=== PATIENT | female | born 1980 | race American Indian/Alaskan Native ===

== ENCOUNTER 2016-07-08 08:57 | Emergency (ER) | payer SELFPAY ==
[2016-07-08 11:11] LABS: Bilirubin,Urine NEG (Negative); Blood,Urine NEG (Negative); Ketones,Urine NEG (Negative); Leukocyte Esterase,Urine NEG (Negative); Mucus,Urine FEW /HPF; Nitrite,Urine NEG (Negative); Protein,Urine <15 mg/dL mg/dL (Negative); WBC,Urine < 1.0 /HPF (0.0-6.0)
[2016-07-08 11:32] LABS: Basophils % (Auto) 0.6 % (0.0-1.8); Eosinophils % (Auto) 2.1 % (0.0-4.3); Hematocrit 41.1 % (30.3-42.9); Hemoglobin 13.6 gm/dl (10.1-14.3); Mean Corpuscular HGB Conc 33 % (30-34); Mean Corpuscular Hemoglobin 29 pg (28-32); Mean Corpuscular Volume 86 fl (79-97); Platelet Count 253 K/mm3 (140-440); Red Blood Count 4.78 M/mm3 (3.65-5.03); Red Cell Distribution Width 15.4 % (13.2-15.2); White Blood Count 7.3 K/mm3 (4.5-11.0)
[2016-07-08 11:55] LABS: Alanine Aminotransferase 15 units/L (7-56); Albumin 4.1 g/dL (3.9-5); Albumin/Globulin Ratio 1.1 %; Alkaline Phosphatase 58 units/L (35-129); Anion Gap 16 mmol/L; Bilirubin,Total 0.5 mg/dL (0.1-1.2); Blood Urea Nitrogen 6 mg/dL (7-17); Carbon Dioxide 26 mmol/L (22-30); Chloride 97.6 mmol/L (98-107); Glucose 79 mg/dL (65-100); Lipase 35 units/L (13-60); Potassium 3.7 mmol/L (3.6-5.0); Sodium 136 mmol/L (137-145); Total Protein 7.9 g/dL (6.3-8.2)
[2016-07-08 20:19] VITALS: BP 100/58
--- NOTE | 2016-07-08 21:04 | Emergency Department Report ---
ED Abdominal Pain HPI - General Chief Complaint: Abdominal Pain Stated Complaint: STOMACH PAIN/SOB Time Seen by Provider: 07/08/16 19:54 Source: patient Mode of arrival: Ambulatory Limitations: No Limitations - History of Present Illness Initial Comments: 36 yo female with past medical history of asthma, vaginal delivery 5, and tubal ligation 2006 presents to the hospital complaining of symptoms of . The past 2 weeks patient has had bilateral breast tenderness, nausea with vomiting worse in the morning, mild left flank pain and left-sided rib pain. Patient complains of shortness of breath at times but denies pleuritic chest pain, calf tenderness, leg edema, recent travel, history of PE/ DVT. No dyspnea at this time. Patient has 4/5 left-sided flank pain and lower back pain worse with movement and palpation. Patient took multiple negative home tests at home prior to arrival. Positive fever, dysuria, or hematuria, and menstral cycle is 3 days late. Severity scale (0 -10): 5 - Related Data Previous Rx's Medication Instructions Recorded Last Taken Type HYDROcodone/APAP 5-325 [[place] 1 each PO Q4HR PRN #14 tablet 08/31/15 Unknown Rx 5/325] Sulfamethoxazole/Trimethoprim 2 tab PO BID #28 tab 03/15/16 Unknown Rx [Bactrim 400-80 mg] Ondansetron [Zofran Odt] 4 mg PO Q8HR PRN #20 tab.rapdis 07/08/16 Unknown Rx Allergies Allergy/AdvReac Type Severity Reaction Status Date / Time iodine Allergy Unknown Verified 08/31/15 08:21 ED Review of Systems ROS: Stated complaint: STOMACH PAIN/SOB Other details as noted in HPI Comment: All other systems reviewed and negative Other: Constitutional: No fevers chills Eyes: No eye pain visual changes ENT: No ear pain or throat pain Neck: Denies pain Respiratory: Denies cough wheezing Cardiovascular: Denies palpitations, syncope GI: as per hpi : Denies dysuria Musculoskeletal: as per hpi Skin: Denies rash, lesions, erythema Neurologic: Denies headache, numbness, weakness Psychiatric: Denies suicidal ideation, hallucinations ED Past Medical Hx - Past Medical History Previous Medical History?: Yes Hx Asthma: Yes Additional medical history: Vaginal delivery x 5 - Surgical History Additional Surgical History: Left knee surgery, Tubal ligation 2006 - Social History Smoking Status: Never Smoker Substance Use Type: None - Medications Home Medications: Home Medications Medication Instructions Recorded Confirmed Last Taken Type HYDROcodone/APAP 5-325 [[place] 1 each PO Q4HR PRN #14 tablet 08/31/15 Unknown Rx 5/325] Sulfamethoxazole/Trimethoprim 2 tab PO BID #28 tab 03/15/16 Unknown Rx [Bactrim 400-80 mg] Ondansetron [Zofran Odt] 4 mg PO Q8HR PRN #20 tab.rapdis 07/08/16 Unknown Rx ED Physical Exam - General Limitations: No Limitations - Other Other exam information: General: No limitations, patient is alert in no acute distress Head exam: Atraumatic, normocephalic Eyes exam: Normal appearance, pupils equal reactive to light, extraocular movements intact ENT: Moist mucous membrane, normal oropharynx Neck exam: Normal inspection, full range of motion, no meningismus nontender Respiratory exam: Clear to auscultation bilateral, no wheezes, rales, crackles Cardiovascular: Normal rate and rhythm, normal heart sounds, right lateral chest wall/rib tenderness Abdomen: Soft, nondistended, and nontender, with normal bowel sounds, no rebound, or guarding Extremity: Full range of motion normal inspection no deformity, no calf tenderness, or edema Back: Normal Inspection, full range of motion, no tenderness Neurologic: Alert, oriented x3, cranial nerves intact, no motor or sensory deficit Psychiatric: normal affect, normal mood Skin: Warm, dry, intact ED Course Vital Signs 07/08/16 07/08/16 10:07 20:18 Temperature 98.0 F 98.2 F Pulse Rate 73 66 Respiratory 18 13 Rate Blood Pressure 117/64 Blood Pressure 100/58 [Left] O2 Sat by Pulse 100 100 Oximetry - Reevaluation(s) Reevaluation #1: 07/08/16 21:13 pt declined offer for meds ED Medical Decision Making - Lab Data Result diagrams: 07/08/16 11:21 07/08/16 11:21 Lab Results 07/08/16 07/08/16 07/08/16 Range/Units 10:50 11:21 11:21 WBC 7.3 (4.5-11.0) K/mm3 RBC 4.78 (3.65-5.03) M/mm3 Hgb 13.6 (10.1-14.3) gm/dl Hct 41.1 (30.3-42.9) % MCV 86 (79-97) fl MCH 29 (28-32) pg MCHC 33 (30-34) % RDW 15.4 H (13.2-15.2) % Plt Count 253 (140-440) K/mm3 Lymph % (Auto) 27.1 (13.4-35.0) % Russell % (Auto) 6.5 (0.0-7.3) % Eos % (Auto) 2.1 (0.0-4.3) % Baso % (Auto) 0.6 (0.0-1.8) % Lymph # 2.0 (1.2-5.4) K/mm3 Russell # 0.5 (0.0-0.8) K/mm3 Eos # 0.2 (0.0-0.4) K/mm3 Baso # 0.0 (0.0-0.1) K/mm3 Seg Neutrophils % 63.7 (40.0-70.0) % Seg Neutrophils # 4.6 (1.8-7.7) K/mm3 Sodium 136 L (137-145) mmol/L Potassium 3.7 (3.6-5.0) mmol/L Chloride 97.6 L (98-107) mmol/L Carbon Dioxide 26 (22-30) mmol/L Anion Gap 16 mmol/L BUN 6 L (7-17) mg/dL Creatinine 0.6 L (0.7-1.2) mg/dL Estimated GFR > 60 ml/min BUN/Creatinine Ratio 10.00 % Glucose 79 (65-100) mg/dL Calcium 9.0 (8.4-10.2) mg/dL Total Bilirubin 0.5 (0.1-1.2) mg/dL AST 19 (5-40) units/L ALT 15 (7-56) units/L Alkaline Phosphatase 58 (35-129) units/L Total Protein 7.9 (6.3-8.2) g/dL Albumin 4.1 (3.9-5) g/dL Albumin/Globulin Ratio 1.1 % Lipase 35 (13-60) units/L HCG, Qual (Negative) Urine Color Yellow (Yellow) Urine Turbidity Clear (Clear) Urine pH 5.0 (5.0-7.0) Ur Specific [place] 1.014 (1.003-1.030) Urine Protein <15 mg/dl (Negative) mg/dL Urine Glucose (UA) Neg (Negative) mg/dL Urine Ketones Neg (Negative) mg/dL Urine Blood Neg (Negative) Urine Nitrite Neg (Negative) Urine Bilirubin Neg (Negative) Urine Urobilinogen 2.0 (<2.0) mg/dL Ur Leukocyte Esterase Neg (Negative) Urine WBC (Auto) < 1.0 (0.0-6.0) /HPF Urine RBC (Auto) 5.0 (0.0-6.0) /HPF U Epithel Cells (Auto) 1.0 (0-13.0) /HPF Urine Mucus Few /HPF 07/08/16 Range/Units 11:21 WBC (4.5-11.0) K/mm3 RBC (3.65-5.03) M/mm3 Hgb (10.1-14.3) gm/dl Hct (30.3-42.9) % MCV (79-97) fl MCH (28-32) pg MCHC (30-34) % RDW (13.2-15.2) % Plt Count (140-440) K/mm3 Lymph % (Auto) (13.4-35.0) % Russell % (Auto) (0.0-7.3) % Eos % (Auto) (0.0-4.3) % Baso % (Auto) (0.0-1.8) % Lymph # (1.2-5.4) K/mm3 Russell # (0.0-0.8) K/mm3 Eos # (0.0-0.4) K/mm3 Baso # (0.0-0.1) K/mm3 Seg Neutrophils % (40.0-70.0) % Seg Neutrophils # (1.8-7.7) K/mm3 Sodium (137-145) mmol/L Potassium (3.6-5.0) mmol/L Chloride (98-107) mmol/L Carbon Dioxide (22-30) mmol/L Anion Gap mmol/L BUN (7-17) mg/dL Creatinine (0.7-1.2) mg/dL Estimated GFR ml/min BUN/Creatinine Ratio % Glucose (65-100) mg/dL Calcium (8.4-10.2) mg/dL Total Bilirubin (0.1-1.2) mg/dL AST (5-40) units/L ALT (7-56) units/L Alkaline Phosphatase (35-129) units/L Total Protein (6.3-8.2) g/dL Albumin (3.9-5) g/dL Albumin/Globulin Ratio % Lipase (13-60) units/L HCG, Qual Negative (Negative) Urine Color (Yellow) Urine Turbidity (Clear) Urine pH (5.0-7.0) Ur Specific [place] (1.003-1.030) Urine Protein (Negative) mg/dL Urine Glucose (UA) (Negative) mg/dL Urine Ketones (Negative) mg/dL Urine Blood (Negative) Urine Nitrite (Negative) Urine Bilirubin (Negative) Urine Urobilinogen (<2.0) mg/dL Ur Leukocyte Esterase (Negative) Urine WBC (Auto) (0.0-6.0) /HPF Urine RBC (Auto) (0.0-6.0) /HPF U Epithel Cells (Auto) (0-13.0) /HPF Urine Mucus /HPF - Medical Decision Making Pt stable with minimal sx at this time. Declined pain meds in ed. No sob. Pt's main concern was to verify . pt d/c home on meds for nausea - Differential Diagnosis , uti, renal colic gastritis, gerd, Critical Care Time: No Critical care attestation.: If time is entered above; I have spent that time in minutes in the direct care of this critically ill patient, excluding procedure time. ED Disposition Clinical Impression: Nausea and vomiting, Abdominal pain Disposition: DISCHARGED TO HOME OR SELFCARE Is pt being admited?: No Does the pt Need Aspirin: No Condition: Stable Instructions: Acute Nausea and Vomiting (ED), Abdominal Pain (ED) Additional Instructions: Take the nausea medication as needed. Follow-up with the [facility] doctor provided, primary care doctor, and/or primary care clinic. You may take Tylenol or Motrin as needed for pain. Return symptoms worse Prescriptions: Ondansetron [Zofran Odt] 4 mg PO Q8HR PRN #20 tab.rapdis PRN Reason: Nausea And Vomiting Referrals: NAS AWAD MD [Staff Physician] - 3-5 Days ([facility]) PATRICIO DRAPER MD [Staff Physician] - 3-5 Days (Primary care doctor) [facility] [Provider Group] - 3-5 Days (Clinic) Time of Disposition: 21:01
== END 2016-07-08 21:18 | disposition home or self-care (01) ==
LOC: ED 08:57
DX: R10.30 Lower abdominal pain, unspecified (principal); R11.2 Nausea with vomiting, unspecified; J45.909 Unspecified asthma, uncomplicated
CPT/HCPCS: 36415; 80053; 81001; 83690; 84703; 85025; 99283

== ENCOUNTER 2017-12-18 23:42 | Emergency (ER) | payer SELFPAY ==
[2017-12-19 00:09] VITALS: BP 106/72
--- NOTE | 2017-12-19 01:03 | XRay Report ---
FINAL REPORT EXAM: XR SPINE LUMBOSACRAL 2-3V HISTORY: lower back pain COMPARISON: None available. FINDINGS: Three views of the lumbar spine obtained. Lumbar vertebral body heights are preserved. Mild levoconvex curvature. Disc heights are preserved. Pedicles are intact. No spondylolisthesis. IMPRESSION: Lumbar vertebral body heights and disc heights are preserved. Mild scoliotic curvature.
--- NOTE | 2017-12-19 01:05 | XRay Report ---
FINAL REPORT EXAM: XR FOOT 3+V LT HISTORY: left foot pain with great toe swelling COMPARISON: None available. FINDINGS: Three views of left foot obtained. Moderate hallux valgus deformity with bunion formation. Mild narrowing of the 1st MTP joint. Bony structures are intact. No acute fracture dislocation. IMPRESSION: Moderate hallux valgus deformity with bunion formation. Mild narrowing of the 1st MTP joint. Bony structures are intact. No acute fracture dislocation.
--- NOTE | 2017-12-19 09:33 | Emergency Department Report ---
ED Fall HPI - General Chief Complaint: Fall Stated Complaint: BACK/LEG/FACE PAIN (FALL) Time Seen by Provider: 12/19/17 07:27 Source: patient Mode of arrival: Ambulatory - Related Data Previous Rx's Medication Instructions Recorded Last Taken Type HYDROcodone/APAP 5-325 [[place] 1 each PO Q4HR PRN #14 tablet 08/31/15 Unknown Rx 5/325] Sulfamethoxazole/Trimethoprim 2 tab PO BID #28 tab 03/15/16 Unknown Rx [Bactrim 400-80 mg] Ondansetron [Zofran Odt] 4 mg PO Q8HR PRN #20 tab.rapdis 07/08/16 Unknown Rx Allergies Allergy/AdvReac Type Severity Reaction Status Date / Time iodine Allergy Unknown Verified 08/31/15 08:21 ED Review of Systems ROS: Stated complaint: BACK/LEG/FACE PAIN (FALL) Other details as noted in HPI ED Past Medical Hx - Past Medical History Hx Asthma: Yes Additional medical history: Vaginal delivery x 5 - Surgical History Additional Surgical History: Left knee surgery, Tubal ligation 2006 - Social History Smoking Status: Never Smoker Substance Use Type: None - Medications Home Medications: Home Medications Medication Instructions Recorded Confirmed Last Taken Type HYDROcodone/APAP 5-325 [[place] 1 each PO Q4HR PRN #14 tablet 08/31/15 Unknown Rx 5/325] Sulfamethoxazole/Trimethoprim 2 tab PO BID #28 tab 03/15/16 Unknown Rx [Bactrim 400-80 mg] Ondansetron [Zofran Odt] 4 mg PO Q8HR PRN #20 tab.rapdis 07/08/16 Unknown Rx ED Physical Exam - General Limitations: No Limitations ED Course Vital Signs 12/19/17 00:08 Temperature 98.8 F Pulse Rate 62 Respiratory 16 Rate Blood Pressure 106/72 [Left] O2 Sat by Pulse 100 Oximetry Critical care attestation.: If time is entered above; I have spent that time in minutes in the direct care of this critically ill patient, excluding procedure time. ED Disposition Condition: Stable Referrals: PRIMARY CARE, [Primary Care Provider] - 3-5 Days
== END 2017-12-19 00:10 | disposition left against medical advice (07) ==
LOC: ED 23:42
DX: M54.5 Low back pain (principal); R51 Headache; Z53.21 Procedure and treatment not carried out due to patient leaving prior to being seen by health care provider
CPT/HCPCS: 72100

== ENCOUNTER 2019-02-27 19:06 | Emergency (ER) | payer SELFPAY ==
--- NOTE | 2019-02-27 20:24 | Event Note ---
ED Screening Note Date of service: 02/27/19 Time: 20:21 ED Screening Note: This is a 38 y.o. F. that presents to the ER with chest pain with deep breaths and SOB for 2 days. - cough, chills, fever, palpitations, radiating pain This initial assessment/diagnostic orders/clinical plan/treatment(s) is/are subject to change based on patients health status, clinical progression and re- assessment by fellow clinical providers in the ED. Further treatment and workup at subsequent clinical providers discretion. Patient/guardian urged not to elope from the ED as their condition may be serious if not clinically assessed and managed. Initial orders include: CXR
--- NOTE | 2019-02-27 21:18 | XRay Report ---
CHEST 2 VIEWS INDICATION: CP and SOB. COMPARISON: None FINDINGS: Support devices: None. Heart: Within normal limits. Lungs/pleura: No acute air space or interstitial disease. No pneumothorax. Additional findings: None. IMPRESSION: 1. No acute findings. Signer Name: Matt Arreola MD Signed: 02/27/2019 9:14 PM Workstation Name: [id number]
--- NOTE | 2019-02-27 22:10 | Emergency Department Report ---
ED General Adult HPI - General Chief complaint: Chest Pain Stated complaint: BODY ACHE/CHEST HURT Time Seen by Provider: 02/27/19 20:20 Source: patient Mode of arrival: Ambulatory Limitations: No Limitations - History of Present Illness Initial comments: Ms. Berry is a 38 y.o. F. that presents to the ER with chest pain with deep breaths and SOB for 2 days. pt has hx of bronchitis. pt denies dyspnea, no n/v, no dizziness, no lightheadedness no back pain, wheezing no stridor. Pain is 3/10 sorness , sharp exacerbated by deep breathing an cough. There is no relieving factor. Onset/Timin -: days(s) Location: chest Radiation: non-radiation Severity scale (0 -10): 3 Quality: sharp Consistency: intermittent Improves with: rest Worsens with: movement, other (deep breathing ) Associated Symptoms: chest pain, cough. denies: denies other symptoms, fever/chills, headaches, nausea/vomiting, shortness of breath, syncope, weakness Treatments Prior to Arrival: none - Related Data Previous Rx's Medication Instructions Recorded Last Taken Type Cetirizine HCl [ZyrTEC] 10 mg PO DAILY #30 capsule 07/16/18 Unknown Rx predniSONE [Deltasone] 20 mg PO DAILY #5 tablet 07/16/18 Unknown Rx ALBUTEROL Inhaler (OR & NICU) 2 puff IH QID PRN #1 inh 02/27/19 Unknown Rx [ProAir HFA Inhaler] Ibuprofen [Motrin 800 MG tab] 800 mg PO Q8HR PRN #30 tablet 02/27/19 Unknown Rx Allergies Allergy/AdvReac Type Severity Reaction Status Date / Time iodine Allergy Anaphylaxis Verified 03/19/18 17:41 shellfish derived Allergy Anaphylaxis Verified 03/19/18 17:41 ED Review of Systems ROS: Stated complaint: BODY ACHE/CHEST HURT Other details as noted in HPI Constitutional: denies: chills, fever Eyes: denies: eye pain, eye discharge, vision change ENT: congestion. denies: ear pain, throat pain Respiratory: cough, shortness of breath. denies: wheezing Cardiovascular: chest pain (chest wall pain wigh cough and deep breathing.). denies: palpitations, orthopnea, paroxysmal nocturnal dyspnea Endocrine: no symptoms reported Gastrointestinal: denies: abdominal pain, nausea, vomiting, diarrhea Genitourinary: denies: urgency, dysuria, discharge Musculoskeletal: denies: back pain, joint swelling, arthralgia Skin: denies: rash, lesions Neurological: denies: headache, weakness, paresthesias Psychiatric: denies: anxiety, depression Hematological/Lymphatic: denies: easy bleeding, easy bruising ED Past Medical Hx - Past Medical History Previous Medical History?: Yes Hx Asthma: Yes Additional medical history: Vaginal delivery x 5 - Surgical History Past Surgical History?: Yes Additional Surgical History: Left ACL repair. Tubal ligation 2006. hernia repair - Social History Smoking Status: Never Smoker Substance Use Type: None - Medications Home Medications: Home Medications Medication Instructions Recorded Confirmed Last Taken Type Cetirizine HCl [ZyrTEC] 10 mg PO DAILY #30 capsule 07/16/18 Unknown Rx predniSONE [Deltasone] 20 mg PO DAILY #5 tablet 07/16/18 Unknown Rx ALBUTEROL Inhaler (OR & NICU) 2 puff IH QID PRN #1 inh 02/27/19 Unknown Rx [ProAir HFA Inhaler] Ibuprofen [Motrin 800 MG tab] 800 mg PO Q8HR PRN #30 tablet 02/27/19 Unknown Rx ED Physical Exam - General Limitations: No Limitations General appearance: alert, in no apparent distress - Head Head exam: Present: atraumatic, normocephalic - Eye Eye exam: Present: normal appearance, PERRL, EOMI Pupils: Present: normal accommodation - ENT ENT exam: Present: normal orophraynx, mucous membranes moist, TM's normal bilaterally, normal external ear exam - Neck Neck exam: Present: normal inspection, full ROM. Absent: tenderness, lymphadenopathy - Respiratory Respiratory exam: Present: normal lung sounds bilaterally, chest wall tenderness (right lateral chest wall tenderness to deep palpation). Absent: respiratory distress, wheezes, stridor, accessory muscle use, decreased breath sounds, prolonged expiratory - Cardiovascular Cardiovascular Exam: Present: regular rate, normal heart sounds - GI/Abdominal GI/Abdominal exam: Present: soft, normal bowel sounds. Absent: distended, tenderness, bruit, hernia - Rectal Rectal exam: Present: deferred - External exam: Present: normal external exam - Extremities Exam Extremities exam: Present: normal inspection, full ROM, normal capillary refill. Absent: tenderness, pedal edema, joint swelling - Back Exam Back exam: Present: normal inspection, full ROM. Absent: tenderness, CVA tenderness (R), CVA tenderness (L), rash noted - Neurological Exam Neurological exam: Present: alert, oriented X3, CN II-XII intact, normal gait - Psychiatric Psychiatric exam: Present: normal affect, normal mood - Skin Skin exam: Present: warm, dry, intact, normal color. Absent: rash ED Course Vital Signs 02/27/19 20:19 Temperature 98.4 F Pulse Rate 74 Respiratory 18 Rate Blood Pressure 114/78 O2 Sat by Pulse 100 Oximetry ED Medical Decision Making - EKG Data EKG shows normal: intervals, QRS complexes, ST-T waves Rate: normal - EKG Data When compared to previous EKG there are: previous EKG unavailable Interpretation: normal EKG (ekg interp by ed attending NSR, no ST Elevated SC) - Radiology Data Radiology results: report reviewed, image reviewed Ordering Physician: FLORENCE ORTEGA Date of Service: 02/27/19 Procedure(s): XR chest routine 2V Accession Number(s): [id number] cc: FLORENCE ORTEGA Fluoro Time In Minutes: CHEST 2 VIEWS INDICATION: CP and SOB. COMPARISON: None FINDINGS: Support devices: None. Heart: Within normal limits. Lungs/pleura: No acute air space or interstitial disease. No pneumothorax. Additional findings: None. IMPRESSION: 1. No acute findings. Signer Name: Matt Arreola MD Signed: 02/27/2019 9:14 PM Workstation Name: [id number] Transcribed By: JW Dictated By: Matt Arreola MD Electronically Authenticated By: Matt Arreola MD Signed Date/Time: 02/27/192113 DD/ 13 TD/TT: - Medical Decision Making this is chest wall pain, low heart score concern, no PERC concern, pain is reproducible to deep palpation, there is no sob, no wheezing, no stridor, plan : refill albuterol inhaler, ibuprofen prn, follow up with pcp in 2-3 days , return to ed if symptoms worsen. Critical care attestation.: If time is entered above; I have spent that time in minutes in the direct care of this critically ill patient, excluding procedure time. ED Disposition Clinical Impression: Chest wall pain Disposition: DC-01 TO HOME OR SELFCARE Is pt being admited?: No Does the pt Need Aspirin: No Condition: Stable Instructions: Chest Pain (ED) Prescriptions: Ibuprofen [Motrin 800 MG tab] 800 mg PO Q8HR PRN #30 tablet PRN Reason: pain ALBUTEROL Inhaler (OR & NICU) [ProAir HFA Inhaler] 2 puff IH QID PRN #1 inh PRN Reason: Shortness Of Breath Referrals: [facility] [Outside] - 3-5 Days Forms: Work/School Release Form(ED) Time of Disposition: 22:20
[2019-02-27 22:46] VITALS: BP 100/69
== END 2019-02-27 22:35 | disposition home or self-care (01) ==
LOC: ED 19:06
DX: R07.89 Other chest pain (principal); J45.909 Unspecified asthma, uncomplicated; Z98.51 Tubal ligation status; Z98.890 Other specified postprocedural states; Z79.1 Long term (current) use of non-steroidal anti-inflammatories (NSAID); Z79.899 Other long term (current) drug therapy; Z91.013 Allergy to seafood; Z91.041 Radiographic dye allergy status
CPT/HCPCS: 71046; 93005; 93010

== ENCOUNTER 2019-04-28 12:47 | Emergency (ER) | payer SELFPAY ==
[2019-04-28 13:12] VITALS: BP 110/57
--- NOTE | 2019-04-28 13:54 | XRay Report ---
CHEST 2 VIEWS INDICATION: MAIN: persistant cough and fever FOR 2 DAYS. COMPARISON: 02/27/2019. FINDINGS: Support devices: None. Heart: Within normal limits. Lungs/Pleura: No acute air space or interstitial disease. No significant pleural effusion. IMPRESSION: No acute findings. Signer Name: Fabiano Georges MD Signed: 04/28/2019 1:50 PM Workstation Name: [id number]
== END 2019-04-28 13:00 | disposition left against medical advice (07) ==
LOC: ED 12:47
DX: J06.9 Acute upper respiratory infection, unspecified (principal); Z53.21 Procedure and treatment not carried out due to patient leaving prior to being seen by health care provider
CPT/HCPCS: 71046

== ENCOUNTER 2019-06-03 00:04 | Emergency (ER) | payer BC ==
[2019-06-03 05:04] VITALS: BP 116/43
--- NOTE | 2019-06-03 07:33 | Emergency Department Report ---
ED Upper Extremity Inj HPI - General Chief Complaint: Extremity Injury, Upper Stated Complaint: NUMBNESS TO RIGHT ARM,BODY SORE Time Seen by Provider: 06/03/19 07:27 Source: patient Mode of arrival: Ambulatory Limitations: No Limitations - History of Present Illness Initial Comments: c/o intermittent numbness/sleeping sensation to R arm x 1 month reports pain to shoulder for few months attributed to repetitive motion and lifting done at work no facial droop, leg weakness or other complaints no trauma no cp/sob MD Complaint: Injury to:: right -: Gradual, month(s) (1) Other Extremity Injury: Shoulder: Right Other Injuries: none Place: work Severity scale (0 -10): 5 Improves With: none Worsens With: none Context: other Associated Symptoms: denies: neck pain - Related Data Previous Rx's Medication Instructions Recorded Last Taken Type Cetirizine HCl [ZyrTEC] 10 mg PO DAILY #30 capsule 07/16/18 Unknown Rx predniSONE [Deltasone] 20 mg PO DAILY #5 tablet 07/16/18 Unknown Rx Albuterol INH(or & Nicu Only) 2 puff IH QID PRN #1 inh 02/27/19 Unknown Rx [ProAir HFA Inhaler] Ibuprofen [Motrin 800 MG tab] 800 mg PO Q8HR PRN #30 tablet 02/27/19 Unknown Rx Naproxen [Naprosyn] 500 mg PO BID #20 tablet 06/03/19 Unknown Rx methylPREDNISolone [Medrol 4MG 4 mg PO DAILY #1 tab.ds.pk 06/03/19 Unknown Rx DOSEPAK (21 tabs)] Allergies Allergy/AdvReac Type Severity Reaction Status Date / Time iodine Allergy Anaphylaxis Verified 03/19/18 17:41 shellfish derived Allergy Anaphylaxis Verified 03/19/18 17:41 ED Review of Systems ROS: Stated complaint: NUMBNESS TO RIGHT ARM,BODY SORE Other details as noted in HPI Comment: All other systems reviewed and negative Musculoskeletal: as per HPI ED Past Medical Hx - Past Medical History Previous Medical History?: Yes Hx Asthma: Yes Additional medical history: Vaginal delivery x 5 - Surgical History Past Surgical History?: Yes Additional Surgical History: Left ACL repair. Tubal ligation 2006. hernia repair - Social History Smoking Status: Never Smoker Substance Use Type: None - Medications Home Medications: Home Medications Medication Instructions Recorded Confirmed Last Taken Type Cetirizine HCl [ZyrTEC] 10 mg PO DAILY #30 capsule 07/16/18 Unknown Rx predniSONE [Deltasone] 20 mg PO DAILY #5 tablet 07/16/18 Unknown Rx Albuterol INH(or & Nicu Only) 2 puff IH QID PRN #1 inh 02/27/19 Unknown Rx [ProAir HFA Inhaler] Ibuprofen [Motrin 800 MG tab] 800 mg PO Q8HR PRN #30 tablet 02/27/19 Unknown Rx Naproxen [Naprosyn] 500 mg PO BID #20 tablet 06/03/19 Unknown Rx methylPREDNISolone [Medrol 4MG 4 mg PO DAILY #1 tab.ds.pk 06/03/19 Unknown Rx DOSEPAK (21 tabs)] ED Physical Exam - General Limitations: No Limitations General appearance: alert, in no apparent distress - Head Head exam: Present: atraumatic, normocephalic - Eye Eye exam: Present: normal appearance - ENT ENT exam: Present: mucous membranes moist - Neck Neck exam: Present: normal inspection - Respiratory Respiratory exam: Present: normal lung sounds bilaterally. Absent: respiratory distress - Cardiovascular Cardiovascular Exam: Present: regular rate, normal rhythm. Absent: systolic murmur, diastolic murmur, rubs, gallop - GI/Abdominal GI/Abdominal exam: Present: soft, normal bowel sounds - Extremities Exam Extremities exam: Present: normal inspection, full ROM, normal capillary refill. Absent: tenderness - Back Exam Back exam: Present: normal inspection - Neurological Exam Neurological exam: Present: alert, oriented X3, CN II-XII intact, normal gait, reflexes normal. Absent: motor sensory deficit - Psychiatric Psychiatric exam: Present: normal affect, normal mood - Skin Skin exam: Present: warm, dry, intact, normal color. Absent: rash ED Course Vital Signs 06/03/19 06/03/19 00:12 05:02 Temperature 98.2 F 97.7 F Pulse Rate 71 61 Respiratory 18 18 Rate Blood Pressure 111/71 116/43 O2 Sat by Pulse 99 100 Oximetry ED Medical Decision Making - Medical Decision Making intermittent numbness to R arm which is used heavily at work normal exam here including strength sensation and reflexes c/w radiculopathy no concern cva advise ortho fu - Differential Diagnosis radiculopathy, strain, spasms Critical care attestation.: If time is entered above; I have spent that time in minutes in the direct care of this critically ill patient, excluding procedure time. ED Disposition Clinical Impression: Cervical radiculopathy Disposition: TO HOME OR SELFCARE Is pt being admited?: No Condition: Good Instructions: Cervical Radiculopathy (ED) Prescriptions: methylPREDNISolone [Medrol 4MG DOSEPAK (21 tabs)] 4 mg PO DAILY #1 tab.ds.pk Naproxen [Naprosyn] 500 mg PO BID #20 tablet Referrals: PRIMARY CAREMD [Primary Care Provider] - 3-5 Days LAURA LIND MD [Staff Physician] - 3-5 Days Time of Disposition: 07:31
== END 2019-06-03 07:48 | disposition home or self-care (01) ==
LOC: ED 00:04
DX: M54.12 Radiculopathy, cervical region (principal); J45.909 Unspecified asthma, uncomplicated; Z91.013 Allergy to seafood; Z91.041 Radiographic dye allergy status; Z98.51 Tubal ligation status; Z98.890 Other specified postprocedural states; Z79.899 Other long term (current) drug therapy
CPT/HCPCS: 99282

== ENCOUNTER 2020-04-14 02:25 | Emergency (ER) | payer BC ==
[2020-04-14 03:33] LABS: Basophils % (Auto) 0.8 % (0.0-1.8); Eosinophils # (Auto) 0.3 K/mm3 (0.0-0.4); Eosinophils % (Auto) 4.4 % (0.0-4.3); Hematocrit 41.8 % (30.3-42.9); Hemoglobin 13.9 gm/dl (10.1-14.3); Lymphocytes # (Auto) 2.2 K/mm3 (1.2-5.4); Lymphocytes % (Auto) 33.5 % (13.4-35.0); Mean Corpuscular HGB Conc 33 % (30-34); Mean Corpuscular Volume 88 fl (79-97); Monocytes # (Auto) 0.4 K/mm3 (0.0-0.8); Monocytes % (Auto) 6.4 % (0.0-7.3); Platelet Count 285 K/mm3 (140-440); Red Blood Count 4.76 M/mm3 (3.65-5.03); Red Cell Distribution Width 14.9 % (13.2-15.2)
[2020-04-14 03:53] LABS: Alanine Aminotransferase 11 units/L (7-56); Albumin 4.1 g/dL (3.9-5); Blood Urea Nitrogen 10 mg/dL (7-17); Calcium 9.1 mg/dL (8.4-10.2); Hemolysis Index 9
[2020-04-14 03:58] LABS: BUN/Creatinine Ratio 14
[2020-04-14 05:02] LABS: Bilirubin,Urine NEG (Negative); Blood,Urine NEG (Negative); Color,Urine Yellow (Yellow); Mucus,Urine 1+ /HPF; Protein,Urine <15 mg/dL mg/dL (Negative)
--- NOTE | 2020-04-14 10:37 | Emergency Department Report ---
ED General Adult HPI - General Chief complaint: Abdominal Pain Stated complaint: ABD PAINS Time Seen by Provider: 04/14/20 08:11 Source: patient Mode of arrival: Ambulatory Limitations: No Limitations - History of Present Illness Initial comments: 40-year-old -Prydeinig female patient presents with complaints of sudden onset of left lower rib/left upper abdominal pain x approximately 4 hours prior to arrival. She describes the pain as sharp and stabbing and states it worsens with movement. She denies any cough, shortness of breath, chest pain, nausea/vomiting/diarrhea, constipation, history of abdominal surgeries, melena/hematochezia, or urinary symptoms. Patient rates her pain as a 9/10 in severity. 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 Patient also denies any leg pain/swelling, hemoptysis, hormone use, recent long travel, or history of DVT/PE/cancer. - Related Data Previous Rx's Medication Instructions Recorded Last Taken Type Cetirizine HCl [ZyrTEC] 10 mg PO DAILY #30 capsule 07/16/18 Unknown Rx predniSONE [Deltasone] 20 mg PO DAILY #5 tablet 07/16/18 Unknown Rx Albuterol Mdi (or & Nicu Only) 2 puff IH QID PRN #1 inh 02/27/19 Unknown Rx [ProAir HFA Inhaler] Ibuprofen [Motrin 800 MG tab] 800 mg PO Q8HR PRN #30 tablet 02/27/19 Unknown Rx Naproxen [Naprosyn] 500 mg PO BID #20 tablet 06/03/19 Unknown Rx methylPREDNISolone [Medrol 4MG 4 mg PO DAILY #1 tab.ds.pk 06/03/19 Unknown Rx DOSEPAK (21 tabs)] Diclofenac Sodium 75 mg PO BID PRN 7 Days #14 04/14/20 Unknown Rx tablet. methOCARBAMOL [Robaxin TAB] 1,500 mg PO Q8H PRN #20 tablet 04/14/20 Unknown Rx Allergies Allergy/AdvReac Type Severity Reaction Status Date / Time iodine Allergy Anaphylaxis Verified 03/19/18 17:41 shellfish derived Allergy Anaphylaxis Verified 03/19/18 17:41 ED Review of Systems ROS: Stated complaint: ABD PAINS Other details as noted in HPI Constitutional: denies: chills, diaphoresis, fever, malaise, weakness Respiratory: denies: cough, shortness of breath Cardiovascular: denies: chest pain, edema, syncope Gastrointestinal: denies: abdominal pain, nausea, vomiting, diarrhea, constipation, hematemesis, melena, hematochezia Genitourinary: denies: urgency, dysuria, frequency, hematuria, discharge, abnormal menses Musculoskeletal: denies: back pain Skin: denies: rash, change in color Neurological: denies: headache, numbness, paresthesias Hematological/Lymphatic: denies: swollen glands ED Past Medical Hx - Past Medical History Previous Medical History?: Yes Hx Asthma: Yes Additional medical history: Vaginal delivery x 5 - Surgical History Additional Surgical History: Left ACL repair. Tubal ligation 2006. hernia repair - Social History Smoking Status: Never Smoker Substance Use Type: None - Medications Home Medications: Home Medications Medication Instructions Recorded Confirmed Last Taken Type Cetirizine HCl [ZyrTEC] 10 mg PO DAILY #30 capsule 07/16/18 Unknown Rx predniSONE [Deltasone] 20 mg PO DAILY #5 tablet 07/16/18 Unknown Rx Albuterol Mdi (or & Nicu Only) 2 puff IH QID PRN #1 inh 02/27/19 Unknown Rx [ProAir HFA Inhaler] Ibuprofen [Motrin 800 MG tab] 800 mg PO Q8HR PRN #30 tablet 02/27/19 Unknown Rx Naproxen [Naprosyn] 500 mg PO BID #20 tablet 06/03/19 Unknown Rx methylPREDNISolone [Medrol 4MG 4 mg PO DAILY #1 tab.ds.pk 06/03/19 Unknown Rx DOSEPAK (21 tabs)] Diclofenac Sodium 75 mg PO BID PRN 7 Days #14 04/14/20 Unknown Rx tablet.dr methOCARBAMOL [Robaxin TAB] 1,500 mg PO Q8H PRN #20 tablet 04/14/20 Unknown Rx ED Physical Exam - General Limitations: No Limitations General appearance: alert, in no apparent distress - Head Head exam: Present: atraumatic, normocephalic - Eye Eye exam: Present: normal appearance. Absent: scleral icterus - Neck Neck exam: Present: normal inspection - Respiratory Respiratory exam: Present: normal lung sounds bilaterally, chest wall tenderness (Tenderness to palpation noted of the anterior left lower ribs without obvious deformity, bruising, swelling, or erythema noted). Absent: respiratory distress - Cardiovascular Cardiovascular Exam: Present: regular rate, normal rhythm. Absent: systolic murmur, diastolic murmur, rubs, gallop - GI/Abdominal GI/Abdominal exam: Present: soft, normal bowel sounds. Absent: distended, tenderness, guarding, rebound, rigid - Extremities Exam Extremities exam: Present: full ROM - Back Exam Back exam: Present: normal inspection - Neurological Exam Neurological exam: Present: alert, oriented X3, normal gait - Psychiatric Psychiatric exam: Present: normal affect, normal mood - Skin Skin exam: Present: warm, dry, intact, normal color. Absent: rash ED Course Vital Signs 04/14/20 04/14/20 03:02 10:49 Temperature 98.4 F 97.9 F Pulse Rate 66 61 Respiratory 22 16 Rate Blood Pressure 111/76 100/56 O2 Sat by Pulse 100 100 Oximetry ED Medical Decision Making - Lab Data Result diagrams: 04/14/20 03:16 04/14/20 03:16 Lab Results 04/14/20 04/14/20 04/14/20 Range/Units 03:16 03:16 08:13 WBC 6.4 (4.5-11.0) K/mm3 RBC 4.76 (3.65-5.03) M/mm3 Hgb 13.9 (10.1-14.3) gm/dl Hct 41.8 (30.3-42.9) % MCV 88 (79-97) fl MCH 29 (28-32) pg MCHC 33 (30-34) % RDW 14.9 (13.2-15.2) % Plt Count 285 (140-440) K/mm3 Lymph % (Auto) 33.5 (13.4-35.0) % Alfalfa % (Auto) 6.4 (0.0-7.3) % Eos % (Auto) 4.4 H (0.0-4.3) % Baso % (Auto) 0.8 (0.0-1.8) % Lymph # (Auto) 2.2 (1.2-5.4) K/mm3 Alfalfa # (Auto) 0.4 (0.0-0.8) K/mm3 Eos # (Auto) 0.3 (0.0-0.4) K/mm3 Baso # (Auto) 0.0 (0.0-0.1) K/mm3 Seg Neutrophils % 54.9 (40.0-70.0) % Seg Neutrophils # 3.5 (1.8-7.7) K/mm3 Sodium 139 (137-145) mmol/L Potassium 3.8 (3.6-5.0) mmol/L Chloride 105.6 (98-107) mmol/L Carbon Dioxide 22 (22-30) mmol/L Anion Gap 15 mmol/L BUN 10 (7-17) mg/dL Creatinine 0.7 (0.6-1.2) mg/dL Estimated GFR > 60 ml/min BUN/Creatinine Ratio 14 % Glucose 99 (65-100) mg/dL Calcium 9.1 (8.4-10.2) mg/dL Total Bilirubin 0.20 (0.1-1.2) mg/dL AST 16 (5-40) units/L ALT 11 (7-56) units/L Alkaline Phosphatase 56 (35-129) units/L Total Protein 7.5 (6.3-8.2) g/dL Albumin 4.1 (3.9-5) g/dL Albumin/Globulin Ratio 1.2 % Lipase 37 (13-60) units/L Urine Color (Yellow) Urine Turbidity (Clear) Urine pH (5.0-7.0) Ur Specific [place] (1.003-1.030) Urine Protein (Negative) mg/dL Urine Glucose (UA) (Negative) mg/dL Urine Ketones (Negative) mg/dL Urine Blood (Negative) Urine Nitrite (Negative) Urine Bilirubin (Negative) Urine Urobilinogen (<2.0) mg/dL Ur Leukocyte Esterase (Negative) Urine WBC (Auto) (0.0-6.0) /HPF Urine RBC (Auto) (0.0-6.0) /HPF Urine Mucus /HPF Urine HCG, Qual Negative (Negative) 04/14/20 Range/Units Unknown WBC (4.5-11.0) K/mm3 RBC (3.65-5.03) M/mm3 Hgb (10.1-14.3) gm/dl Hct (30.3-42.9) % MCV (79-97) fl MCH (28-32) pg MCHC (30-34) % RDW (13.2-15.2) % Plt Count (140-440) K/mm3 Lymph % (Auto) (13.4-35.0) % Alfalfa % (Auto) (0.0-7.3) % Eos % (Auto) (0.0-4.3) % Baso % (Auto) (0.0-1.8) % Lymph # (Auto) (1.2-5.4) K/mm3 Alfalfa # (Auto) (0.0-0.8) K/mm3 Eos # (Auto) (0.0-0.4) K/mm3 Baso # (Auto) (0.0-0.1) K/mm3 Seg Neutrophils % (40.0-70.0) % Seg Neutrophils # (1.8-7.7) K/mm3 Sodium (137-145) mmol/L Potassium (3.6-5.0) mmol/L Chloride (98-107) mmol/L Carbon Dioxide (22-30) mmol/L Anion Gap mmol/L BUN (7-17) mg/dL Creatinine (0.6-1.2) mg/dL Estimated GFR ml/min BUN/Creatinine Ratio % Glucose (65-100) mg/dL Calcium (8.4-10.2) mg/dL Total Bilirubin (0.1-1.2) mg/dL AST (5-40) units/L ALT (7-56) units/L Alkaline Phosphatase (35-129) units/L Total Protein (6.3-8.2) g/dL Albumin (3.9-5) g/dL Albumin/Globulin Ratio % Lipase (13-60) units/L Urine Color Yellow (Yellow) Urine Turbidity Clear (Clear) Urine pH 5.0 (5.0-7.0) Ur Specific [place] 1.025 (1.003-1.030) Urine Protein <15 mg/dl (Negative) mg/dL Urine Glucose (UA) Neg (Negative) mg/dL Urine Ketones Neg (Negative) mg/dL Urine Blood Neg (Negative) Urine Nitrite Neg (Negative) Urine Bilirubin Neg (Negative) Urine Urobilinogen 2.0 (<2.0) mg/dL Ur Leukocyte Esterase Neg (Negative) Urine WBC (Auto) 1.0 (0.0-6.0) /HPF Urine RBC (Auto) 11.0 (0.0-6.0) /HPF Urine Mucus 1+ /HPF Urine HCG, Qual (Negative) - Radiology Data Radiology results: report reviewed CHEST 2 VIEWS INDICATION: left lower lung pain. COMPARISON: 04/28/2019 FINDINGS: Support devices: None. Heart: Within normal limits. Lungs/Pleura: No acute air space or interstitial disease. No significant pleural effusion. IMPRESSION: No acute findings. - Medical Decision Making 40-year-old -Prydeinig female patient presents with complaints of sudden onset of left lower rib/left upper abdominal pain x approximately 4 hours prior to arrival. She describes the pain as sharp and stabbing and states it worsens with movement. She denies any cough, shortness of breath, chest pain, nausea/vomiting/diarrhea, constipation, history of abdominal surgeries, me jun/hematochezia, or urinary symptoms. Patient rates her pain as a 9/10 in severity. 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 Patient also denies any leg pain/swelling, hemoptysis, hormone use, recent long travel, or history of DVT/PE/cancer. PERC score = 0. Chest x-ray is normal. Labs are normal. Will treat for muscle strain with Robaxin and NSAIDs. Recommend icing to the area and follow-up with PCP in 3 days. She is well-appearing, her vitals are normal, she is stable for discharge home. Strict return precautions were discussed in detail with patient who verbalizes understanding Critical care attestation.: If time is entered above; I have spent that time in minutes in the direct care of this critically ill patient, excluding procedure time. ED Disposition Clinical Impression: Chest wall muscle strain Qualifiers: Encounter type: initial encounter Qualified Code(s): S29.011A - Strain of muscle and tendon of front wall of thorax, initial encounter Disposition: - TO HOME OR SELFCARE Is pt being admited?: No Condition: Stable Instructions: Abdominal Pain (ED), Muscle Strain, Muscle Cramps and Spasms Prescriptions: Diclofenac Sodium 75 mg PO BID PRN 7 Days #14 tablet. PRN Reason: pain methOCARBAMOL [Robaxin TAB] 1,500 mg PO Q8H PRN #20 tablet PRN Reason: muscle spasm/tightness Referrals: PRIMARY CARE, [Primary Care Provider] - 3-5 Days
[2020-04-14 10:51] VITALS: BP 100/56
[2020-04-14 11:48] LABS: HCG Qualitative,Urine Negative (Negative)
--- NOTE | 2020-04-14 12:46 | XRay Report ---
CHEST 2 VIEWS INDICATION: left lower lung pain. COMPARISON: 04/28/2019 FINDINGS: Support devices: None. Heart: Within normal limits. Lungs/Pleura: No acute air space or interstitial disease. No significant pleural effusion. IMPRESSION: No acute findings. Signer Name: Fabiano Georges MD Signed: 04/14/2020 12:42 PM Workstation Name: [id number]
--- NOTE | 2020-04-14 12:49 | XRay Report ---
LUMBAR SPINE 3 VIEWS INDICATION / CLINICAL INFORMATION: left lower lung pain COMPARISON: None available. FINDINGS: BONES / JOINT(S): No acute fracture or subluxation. No significant arthritis. SOFT TISSUES: No significant abnormality. ADDITIONAL FINDINGS: None. Signer Name: Fabiano Georges MD Signed: 04/14/2020 12:45 PM Workstation Name: [id number]
== END 2020-04-14 13:25 | disposition home or self-care (01) ==
LOC: ED 02:25
DX: S29.011A Strain of muscle and tendon of front wall of thorax, initial encounter (principal); J45.909 Unspecified asthma, uncomplicated; Z98.51 Tubal ligation status; Z98.890 Other specified postprocedural states; Z79.899 Other long term (current) drug therapy; Z91.013 Allergy to seafood; Z91.048 Other nonmedicinal substance allergy status; X58.XXXA Exposure to other specified factors, initial encounter; Y93.89 Activity, other specified; Y92.89 Other specified places as the place of occurrence of the external cause; Y99.8 Other external cause status
CPT/HCPCS: 36415; 71046; 72100; 80053; 81001; 81025; 83690; 85025

== ENCOUNTER 2020-08-31 17:37 | Emergency (ER) | payer BC, OTHER ==
[2020-08-31 20:16] VITALS: BP 119/56
--- NOTE | 2020-08-31 21:09 | Emergency Department Report ---
ED ENT HPI - General Chief complaint: Earache Stated complaint: LT EAR PAIN/LIGHTHEADED Time Seen by Provider: 08/31/20 21:06 Source: patient Mode of arrival: Ambulatory Limitations: No Limitations - History of Present Illness Initial comments: Patient is a 40-year-old female presents emergency room complaints of left-sided ear pain that began a week ago. She denies any ear drainage, hearing changes, bleeding from the ear, fever, nausea, vomiting, diarrhea, cough, shortness of breath, sore throat, sick contacts. Past medical history of asthma. Allergy to iodine. Last menstrual cycle 08/08/2020. She denies any recent antibiotics in the last 3 months. - Related Data Previous Rx's Medication Instructions Recorded Last Taken Type Cetirizine HCl [ZyrTEC] 10 mg PO DAILY #30 capsule 07/16/18 Unknown Rx predniSONE [Deltasone] 20 mg PO DAILY #5 tablet 07/16/18 Unknown Rx Albuterol Mdi (or & Nicu Only) 2 puff IH QID PRN #1 inh 02/27/19 Unknown Rx [ProAir HFA Inhaler] Ibuprofen [Motrin 800 MG tab] 800 mg PO Q8HR PRN #30 tablet 02/27/19 Unknown Rx Naproxen [Naprosyn] 500 mg PO BID #20 tablet 06/03/19 Unknown Rx methylPREDNISolone [Medrol 4MG 4 mg PO DAILY #1 tab.ds.pk 06/03/19 Unknown Rx DOSEPAK (21 tabs)] Diclofenac Sodium 75 mg PO BID PRN 7 Days #14 04/14/20 Unknown Rx tablet. methOCARBAMOL [Robaxin TAB] 1,500 mg PO Q8H PRN #20 tablet 04/14/20 Unknown Rx Amoxicillin [Amoxicillin TAB] 875 mg PO BID 10 Days #20 tablet 08/31/20 Unknown Rx Allergies Allergy/AdvReac Type Severity Reaction Status Date / Time iodine Allergy Anaphylaxis Verified 03/19/18 17:41 shellfish derived Allergy Anaphylaxis Verified 03/19/18 17:41 ED Dental HPI - General Chief complaint: Earache Stated complaint: LT EAR PAIN/LIGHTHEADED Time Seen by Provider: 08/31/20 21:06 Source: patient Mode of arrival: Ambulatory Limitations: No Limitations - Related Data Previous Rx's Medication Instructions Recorded Last Taken Type Cetirizine HCl [ZyrTEC] 10 mg PO DAILY #30 capsule 07/16/18 Unknown Rx predniSONE [Deltasone] 20 mg PO DAILY #5 tablet 07/16/18 Unknown Rx Albuterol Mdi (or & Nicu Only) 2 puff IH QID PRN #1 inh 02/27/19 Unknown Rx [ProAir HFA Inhaler] Ibuprofen [Motrin 800 MG tab] 800 mg PO Q8HR PRN #30 tablet 02/27/19 Unknown Rx Naproxen [Naprosyn] 500 mg PO BID #20 tablet 06/03/19 Unknown Rx methylPREDNISolone [Medrol 4MG 4 mg PO DAILY #1 tab.ds.pk 06/03/19 Unknown Rx DOSEPAK (21 tabs)] Diclofenac Sodium 75 mg PO BID PRN 7 Days #14 04/14/20 Unknown Rx tablet. methOCARBAMOL [Robaxin TAB] 1,500 mg PO Q8H PRN #20 tablet 04/14/20 Unknown Rx Amoxicillin [Amoxicillin TAB] 875 mg PO BID 10 Days #20 tablet 08/31/20 Unknown Rx Allergies Allergy/AdvReac Type Severity Reaction Status Date / Time iodine Allergy Anaphylaxis Verified 03/19/18 17:41 shellfish derived Allergy Anaphylaxis Verified 03/19/18 17:41 ED Review of Systems ROS: Stated complaint: LT EAR PAIN/LIGHTHEADED Other details as noted in HPI Comment: All other systems reviewed and negative ED Past Medical Hx - Past Medical History Previous Medical History?: Yes Hx Asthma: Yes Additional medical history: Vaginal delivery x 5 - Surgical History Additional Surgical History: Left ACL repair. Tubal ligation 2006. hernia repair - Social History Smoking Status: Never Smoker Substance Use Type: None - Medications Home Medications: Home Medications Medication Instructions Recorded Confirmed Last Taken Type Cetirizine HCl [ZyrTEC] 10 mg PO DAILY #30 capsule 07/16/18 Unknown Rx predniSONE [Deltasone] 20 mg PO DAILY #5 tablet 07/16/18 Unknown Rx Albuterol Mdi (or & Nicu Only) 2 puff IH QID PRN #1 inh 02/27/19 Unknown Rx [ProAir HFA Inhaler] Ibuprofen [Motrin 800 MG tab] 800 mg PO Q8HR PRN #30 tablet 02/27/19 Unknown Rx Naproxen [Naprosyn] 500 mg PO BID #20 tablet 06/03/19 Unknown Rx methylPREDNISolone [Medrol 4MG 4 mg PO DAILY #1 tab.ds.pk 06/03/19 Unknown Rx DOSEPAK (21 tabs)] Diclofenac Sodium 75 mg PO BID PRN 7 Days #14 04/14/20 Unknown Rx tablet. methOCARBAMOL [Robaxin TAB] 1,500 mg PO Q8H PRN #20 tablet 04/14/20 Unknown Rx Amoxicillin [Amoxicillin TAB] 875 mg PO BID 10 Days #20 tablet 08/31/20 Unknown Rx ED Physical Exam - General Limitations: No Limitations General appearance: alert, in no apparent distress - Head Head exam: Present: atraumatic, normocephalic - Eye Eye exam: Present: normal appearance - ENT ENT exam: Present: mucous membranes moist, other (right TM and canal are normal, left canal is normal, left TM is erythematous with mild purulence behind the TM, no bulging, no TM perforation) - Respiratory Respiratory exam: Absent: respiratory distress, accessory muscle use - Neurological Exam Neurological exam: Present: alert, oriented X3 - Psychiatric Psychiatric exam: Present: normal affect, normal mood - Skin Skin exam: Present: warm, dry, intact ED Course Vital Signs 08/31/20 19:47 Temperature 98.6 F Pulse Rate 69 Respiratory 14 Rate Blood Pressure 119/56 O2 Sat by Pulse 99 Oximetry ED Medical Decision Making - Medical Decision Making Patient is a 40-year-old female presents emergency room complaints of left-sided ear pain that began a week ago. She denies any ear drainage, hearing changes, bleeding from the ear, fever, nausea, vomiting, diarrhea, cough, shortness of breath, sore throat, sick contacts. Past medical history of asthma. Allergy to iodine. Last menstrual cycle 08/08/2020. She denies any recent antibiotics in the last 3 months. Vitals are normal. On exam:right TM and canal are normal, left canal is normal, left TM is erythematous with mild purulence behind the TM, no bulging, no TM perforation. Examination appears consistent with otitis media. Patient can prescription for amoxicillin. Advised patient Please take medication as prescribed. Increase your water intake. May alternate Tylenol and then ibuprofen as needed for discomfort. Follow-up with your primary care doctor for ear recheck. Return to emergency room for any new or worsening symptoms. Critical care attestation.: If time is entered above; I have spent that time in minutes in the direct care of this critically ill patient, excluding procedure time. ED Disposition Clinical Impression: Otitis media Qualifiers: Otitis media type: suppurative Chronicity: acute Laterality: left Recurrence: non-recurrent Spontaneous tympanic membrane rupture: without spontaneous rupture Qualified Code(s): H66.002 - Acute suppurative otitis media without spontaneous rupture of ear drum, left ear Disposition: DC- TO HOME OR SELFCARE Is pt being admited?: No Does the pt Need Aspirin: No Condition: Stable Instructions: Otitis Media, Adult, [id number] Additional Instructions: Please take medication as prescribed. Increase your water intake. May alternate Tylenol and then ibuprofen as needed for discomfort. Follow-up with your primary care doctor for ear recheck. Return to emergency room for any new or worsening symptoms. Prescriptions: Amoxicillin [Amoxicillin TAB] 875 mg PO BID 10 Days #20 tablet Referrals: ELENI ROSSI MD [Staff Physician] - 2-3 Days [facility] [Provider Group] - 2-3 Days Forms: Work/School Release Form(ED) Time of Disposition: 21:08 Print Language: [place]
== END 2020-08-31 22:10 | disposition home or self-care (01) ==
LOC: ED 17:37
DX: H66.92 Otitis media, unspecified, left ear (principal); J45.909 Unspecified asthma, uncomplicated; Z79.899 Other long term (current) drug therapy; Z98.890 Other specified postprocedural states; Z98.51 Tubal ligation status; Z91.013 Allergy to seafood; Z91.041 Radiographic dye allergy status
CPT/HCPCS: 99281

== ENCOUNTER 2021-10-25 11:39 | Emergency (ER) | payer OTHER ==
[2021-10-25] MEDS ORDERED: KETOROLAC 60 MG/2 ML INJ IM ONE (12:08)
[2021-10-25] MEDS ORDERED: dexAMETHasone 20 MG/5 ML VIAL IM ONE (12:08)
[2021-10-25] MEDS ORDERED: IBUPROFEN 600 MG TAB PO ONE (12:11)
[2021-10-25] MEDS ORDERED: ACETAMINOPHEN 500 MG TAB PO ONE (12:11)
[2021-10-25] MEDS ORDERED: predniSONE 20 MG TAB PO ONE (12:11)
--- NOTE | 2021-10-25 12:31 | XRay Report ---
CHEST 2 VIEWS INDICATION / CLINICAL INFORMATION: LEFT SIDED MID-THORACIC PAIN. COMPARISON: 04/14/2020 FINDINGS: SUPPORT DEVICES: None. HEART / MEDIASTINUM: No significant abnormality. LUNGS / PLEURA: No significant pulmonary or pleural abnormality. No pneumothorax. ADDITIONAL FINDINGS: No significant additional findings. IMPRESSION: 1. No acute findings. Signer Name: River Lehman MD Signed: 10/25/2021 12:27 PM Workstation Name: [id number]
--- NOTE | 2021-10-25 13:04 | Emergency Department Report ---
ED Back Pain/Injury HPI - General Chief Complaint: Back Pain/Injury Stated Complaint: BACK AND LEG PAIN Source: patient Limitations: No Limitations - History of Present Illness Initial Comments: Patient is a 41-year-old -[place]aur[place] female with a history of asthma presents to the ED with complaint of acute onset persistent right-sided mid posterior thoracic pain for the last 1 month intermittently, worse in the last 1 week. Patient states the pain has been constant and persistent and last 1 week and that it also radiates to the lower back and right leg. Patient also states the pain gets worse with deep inhalation or cough. Patient denies head or neck injuries, fall, traumatic injury, nausea and vomiting, chest pain and shortness of breath, change in vision, heavy lifting, neck pain, abdominal pain, palpitations, numbness and tingling or weakness of upper and lower extremities bilaterally. MD Complaint: back pain (right-sided mid posterior thoracic pain; low back pain that radiates to right leg) -: month(s) (1) Similar Symptoms Previously: No Place: home Radiation: right leg Severity: severe Severity scale (0 -10): 7 Quality: sharp, aching Consistency: intermittent Improves With: none Worsens With: movement Context: unknown Associated Symptoms: denies other symptoms. denies: confusion, weakness, chest pain, numbness, difficulty walking, cough, difficulty urinating, diaphoresis, fever/chills, constipation, headaches, abdominal pain, malaise, nausea/vomiting, rash, shortness of breath, other Treatments Prior to Arrival: acetaminophen - Related Data Previous Rx's Medication Instructions Recorded Last Taken Type Cetirizine HCl [ZyrTEC] 10 mg PO DAILY #30 capsule 07/16/18 Unknown Rx Albuterol Mdi (or & Nicu Only) 2 puff IH QID PRN #1 inh 02/27/19 Unknown Rx [ProAir HFA Inhaler] Ibuprofen [Motrin 800 MG tab] 800 mg PO Q8HR PRN #30 tablet 02/27/19 Unknown Rx methylPREDNISolone [Medrol 4MG 4 mg PO DAILY #1 tab.ds.pk 06/03/19 Unknown Rx DOSEPAK (21 tabs)] Diclofenac Sodium 75 mg PO BID PRN 7 Days #14 04/14/20 Unknown Rx tablet. Amoxicillin [Amoxicillin TAB] 875 mg PO BID 10 Days #20 tablet 08/31/20 Unknown Rx Naproxen [Naprosyn] 500 mg PO BID PRN #30 tablet 10/25/21 Unknown Rx methOCARBAMOL [Robaxin TAB] 1,500 mg PO Q8H PRN #30 tablet 10/25/21 Unknown Rx predniSONE [Deltasone] 40 mg PO DAILY #10 tablet 10/25/21 Unknown Rx Allergies Allergy/AdvReac Type Severity Reaction Status Date / Time iodine Allergy Anaphylaxis Verified 03/19/18 17:41 shellfish derived Allergy Anaphylaxis Verified 03/19/18 17:41 ED Review of Systems ROS: Stated complaint: BACK AND LEG PAIN Other details as noted in HPI Constitutional: denies: chills, fever Eyes: denies: eye pain, eye discharge, vision change ENT: denies: ear pain, throat pain Respiratory: denies: cough, shortness of breath, wheezing Cardiovascular: denies: chest pain, palpitations Endocrine: no symptoms reported Gastrointestinal: denies: abdominal pain, nausea, diarrhea Genitourinary: denies: urgency, dysuria, discharge Musculoskeletal: back pain (Mid posterior thoracic pain, low back pain radiating to the right leg), arthralgia. denies: joint swelling Skin: denies: rash, lesions Neurological: denies: headache, weakness, paresthesias Psychiatric: denies: anxiety, depression Hematological/Lymphatic: denies: easy bleeding, easy bruising ED Past Medical Hx - Past Medical History Previous Medical History?: Yes Hx Asthma: Yes Additional medical history: Vaginal delivery x 5, Back pain - Surgical History Past Surgical History?: Yes Additional Surgical History: Left ACL repair. Tubal ligation 2006. hernia repair - Social History Smoking Status: Never Smoker Substance Use Type: None - Medications Home Medications: Home Medications Medication Instructions Recorded Confirmed Last Taken Type Cetirizine HCl [ZyrTEC] 10 mg PO DAILY #30 capsule 07/16/18 Unknown Rx Albuterol Mdi (or & Nicu Only) 2 puff IH QID PRN #1 inh 02/27/19 Unknown Rx [ProAir HFA Inhaler] Ibuprofen [Motrin 800 MG tab] 800 mg PO Q8HR PRN #30 tablet 02/27/19 Unknown Rx methylPREDNISolone [Medrol 4MG 4 mg PO DAILY #1 tab.ds.pk 06/03/19 Unknown Rx DOSEPAK (21 tabs)] Diclofenac Sodium 75 mg PO BID PRN 7 Days #14 04/14/20 Unknown Rx tablet. Amoxicillin [Amoxicillin TAB] 875 mg PO BID 10 Days #20 tablet 08/31/20 Unknown Rx Naproxen [Naprosyn] 500 mg PO BID PRN #30 tablet 10/25/21 Unknown Rx methOCARBAMOL [Robaxin TAB] 1,500 mg PO Q8H PRN #30 tablet 10/25/21 Unknown Rx predniSONE [Deltasone] 40 mg PO DAILY #10 tablet 10/25/21 Unknown Rx ED Physical Exam - General Limitations: No Limitations General appearance: alert, in no apparent distress - Head Head exam: Present: atraumatic, normocephalic, normal inspection - Eye Eye exam: Present: normal appearance, PERRL, EOMI Pupils: Present: normal accommodation - ENT ENT exam: Present: normal exam, normal orophraynx, mucous membranes moist, TM's normal bilaterally, normal external ear exam - Neck Neck exam: Present: normal inspection, full ROM. Absent: tenderness - Respiratory Respiratory exam: Present: normal lung sounds bilaterally. Absent: respiratory distress, wheezes, rales, rhonchi, chest wall tenderness, accessory muscle use, decreased breath sounds, prolonged expiratory - Cardiovascular Cardiovascular Exam: Present: regular rate, normal rhythm, normal heart sounds. Absent: systolic murmur, diastolic murmur, rubs, gallop - GI/Abdominal GI/Abdominal exam: Present: soft, normal bowel sounds. Absent: tenderness, guarding, rebound, hyperactive bowel sounds, hypoactive bowel sounds, organomegaly - Extremities Exam Extremities exam: Present: normal inspection, full ROM, normal capillary refill. Absent: tenderness - Back Exam Back exam: Present: normal inspection, full ROM, tenderness (Palpable right sided mid posterior thoracic paraspinal musculoskeletal tenderness), muscle spasm, paraspinal tenderness. Absent: CVA tenderness (R), CVA tenderness (L), vertebral tenderness - Neurological Exam Neurological exam: Present: alert, oriented X3, CN II-XII intact, normal gait, reflexes normal - Psychiatric Psychiatric exam: Present: normal affect, normal mood - Skin Skin exam: Present: warm, dry, intact, normal color. Absent: rash ED Course Vital Signs 10/25/21 11:47 Temperature 97.8 F Pulse Rate 67 Respiratory 20 Rate Blood Pressure 109/67 [Right] O2 Sat by Pulse 100 Oximetry ED Medical Decision Making - Radiology Data Radiology results: report reviewed, image reviewed [facility], [place] [address] [place] [address] XRay Report Signed Patient: SONNY PATEL MR#: [id number] 89 : 1980 Acct:[id number] Age/Sex: 41 / F ADM Date: 10/25/21 Loc: ED Attending Dr: Ordering Physician: JAMIN MANRIQUE Date of Service: 10/25/21 Procedure(s): XR chest routine 2V Accession Number(s): [id number] cc: JAMIN MANRIQUE Fluoro Time In Minutes: CHEST 2 VIEWS INDICATION / CLINICAL INFORMATION: LEFT SIDED MID-THORACIC PAIN. COMPARISON: 04/14/2020 FINDINGS: SUPPORT DEVICES: None. HEART / MEDIASTINUM: No significant abnormality. LUNGS / PLEURA: No significant pulmonary or pleural abnormality. No pneumothorax. ADDITIONAL FINDINGS: No significant additional findings. IMPRESSION: 1. No acute findings. Signer Name: River Lehman MD Signed: 10/25/2021 12:27 PM Workstation Name: [id number] Transcribed By: ALLY Dictated By: River Lehman MD Electronically Authenticated By: River Lehman MD Signed Date/Time: 10/25/21 122 DD/ 122 TD/TT: - Medical Decision Making This is a 41-year-old -[place]aur[place] female with a history of asthma presents to the ED with complaint of acute onset persistent right-sided mid posterior thoracic pain for the last 1 month intermittently, worse in the last 1 week. Patient states the pain has been constant and persistent and last 1 week and that it also radiates to the lower back and right leg. Patient also states the pain gets worse with deep inhalation or cough. In the ED, patient is alert and oriented x3 and is not in any distress. Patient is hemodynamically stable. Patient was treated for pain in the ED. The 2 views of chest x-ray showed no acute cardiopulmonary abnormalities or pneumonitis. Based on the history and physical exam findings as well as imaging reports, the patient symptoms are likely musculoskeletal muscle strain or muscle spasm. Patient was discharged home on pain medications and advised to follow-up with her primary care physician in 7 to 10 days for reevaluation or return to the ED immediately if symptoms get worse. - Differential Diagnosis Muscle strain; muscle spasm; pneumonia; sciatica; Critical care attestation.: If time is entered above; I have spent that time in minutes in the direct care of this critically ill patient, excluding procedure time. ED Disposition Clinical Impression: Spasm of thoracic back muscle, Strain of muscle and tendon of back wall of thorax, initial encounter, Acute right-sided low back pain with right-sided sciatica Disposition: 01 HOME / SELF CARE / HOMELESS Is pt being admited?: No Does the pt Need Aspirin: No Condition: Stable Instructions: Muscle Cramps and Spasms, [id number], Muscle Strain, [id number], Sciatica, [id number] Additional Instructions: The chest x-ray showed no acute pulmonary abnormalities or pneumonitis. Therefore take medication with food, drink plenty of fluids follow-up with your primary care physician in 7 to 10 days for reevaluation or return to the ED immediately if symptoms get worse. Prescriptions: predniSONE [Deltasone] 40 mg PO DAILY #10 tablet Naproxen [Naprosyn] 500 mg PO BID PRN #30 tablet PRN Reason: Pain , Severe (7-10) methOCARBAMOL [Robaxin TAB] 1,500 mg PO Q8H PRN #30 tablet PRN Reason: muscle spasm/tightness Referrals: [facility] [Provider Group] - 7-10 days Forms: Work/School Release Form(ED) Time of Disposition: 13:08 Print Language: ARMENIAN
[2021-10-25 13:19] VITALS: BP 133/89
== END 2021-10-25 13:30 | disposition home or self-care (01) ==
LOC: ED 11:39
DX: S29.012A Strain of muscle and tendon of back wall of thorax, initial encounter (principal); M62.830 Muscle spasm of back; M54.41 Lumbago with sciatica, right side; J45.909 Unspecified asthma, uncomplicated; Z98.890 Other specified postprocedural states; X58.XXXA Exposure to other specified factors, initial encounter; Y93.89 Activity, other specified; Y92.89 Other specified places as the place of occurrence of the external cause; Y99.8 Other external cause status
CPT/HCPCS: 71046; 96372; 99282

== ENCOUNTER 2021-12-15 09:05 | Emergency (ER) | payer OTHER ==
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
[2021-12-15 12:57] LABS: HCG Qualitative,Urine Negative (Negative)
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
[2021-12-15 15:20] VITALS: BP 124/69
== END 2021-12-15 15:24 | disposition home or self-care (01) ==
LOC: ED 09:05
DX: S13.4XXA Sprain of ligaments of cervical spine, initial encounter (principal); S50.02XA Contusion of left elbow, initial encounter; Z88.6 Allergy status to analgesic agent; Z91.013 Allergy to seafood; J45.909 Unspecified asthma, uncomplicated; Z79.899 Other long term (current) drug therapy; V87.7XXA Person injured in collision between other specified motor vehicles (traffic), initial encounter; Y93.89 Activity, other specified; Y92.488 Other paved roadways as the place of occurrence of the external cause; Y99.8 Other external cause status
CPT/HCPCS: 72040; 81025; 99283